=== PATIENT | male | born 1960 | race Caucasian/White ===

== ENCOUNTER → 2022-01-10 16:57 | Outpatient (CLI) | payer BC, SELFPAY ==
[2022-01-10 18:32] LABS: Free T3, Triiodothyronine Free 3.36 pg/mL (2.77-5.27); Free T4, Direct Thyroxine 1.13 ng/dL (0.78-2.19)
== END ==
PROVIDERS: PCP Psychiatry & Neurology Psychiatry; Referring Provider Psychiatry & Neurology Psychiatry; Visit Provider Psychiatry & Neurology Psychiatry
DX: E03.9 Hypothyroidism, unspecified (principal)
CPT/HCPCS: 36415; 84439; 84443; 84481

== ENCOUNTER → 2022-10-10 08:15 | Outpatient (CLI) | payer BC, SELFPAY ==
[2022-10-10 09:02] LABS: Add Manual Diff / Slide Review NO; Basophils Absolute Auto 100 /uL (0-100); Basophils Percent Auto 1.4 % (0-2); Eosinophils Absolute Auto 200 /uL (0-450); Eosinophils Percent Auto 4.8 % (2-4); Hematocrit 45.2 % (41-53); Hemoglobin 15.4 g/dL (13.5-17.5); Lymphocytes Absolute Auto 1300 /uL (1100-4500); Mean Corpuscular HGB Conc 34.2 % (30-36); Mean Corpuscular Hemoglobin 34.2 PG (26-34); Monocytes Absolute Auto 400 /uL (0-900); Monocytes Percent Auto 8.8 % (3-14); Neutrophils Absolute Auto 3100 /uL (1500-7000); Platelet Count 188 X10^3/uL (150-400); Red Blood Cell Count 4.52 X10^6/uL (4.5-5.9); Red Cell Distribution Width 12.9 % (11.6-14.8); White Blood Cell Count 5.1 X10^3/uL (4.5-11.0)
[2022-10-10 09:03] LABS: Alanine Aminotransferase 33 IU/L (<50); Albumin 4.4 g/dL (3.5-5.0); Albumin Globulin Ratio 1.7 (1.0-2.8); Alkaline Phosphatase 75 U/L (38-126); Aspartate Aminotransferase 27 IU/L (17-59); BUN Creatinine Ratio 18.4 (6-22); Bilirubin Total 0.3 mg/dL (0.2-1.3); Blood Urea Nitrogen 18 mg/dL (9-20); Carbon Dioxide 25 mmol/L (22-32); Chloride 107 mmol/L (98-107); Cholesterol 280 mg/dL (140-199); Estimated Glomerular Filt Rate > 60 mL/min (>60); Globulin 2.6 g/dL (1.7-4.1); Glucose 101 mg/dL (80-110); HDL Cholesterol 65 mg/dL (40-60); HEMOLYSIS < 15 (0-50); LDL Cholesterol Calculated 191 mg/dL (<100); Potassium 4.3 mmol/L (3.4-5.1); Sodium 139 mmol/L (137-145); Triglycerides 119 mg/dL (35-150)
[2022-10-10 09:27] LABS: Prostate Specific Antigen Scrn 4.62 ng/mL (0.1-4.0); TSH w/ Reflex to FT4 5.92 uIU/mL (0.47-4.68)
[2022-10-10 09:52] LABS: Free T4, Direct Thyroxine 1.14 ng/dL (0.78-2.19)
== END ==
PROVIDERS: PCP Family Medicine; Referring Provider Family Medicine; Visit Provider Family Medicine
DX: E03.9 Hypothyroidism, unspecified (principal); Z13.220 Encounter for screening for lipoid disorders; Z79.899 Other long term (current) drug therapy; Z12.5 Encounter for screening for malignant neoplasm of prostate
CPT/HCPCS: 36415; 80053; 80061; 84439; 84443; 85025; G0103

== ENCOUNTER 2022-10-29 22:50 | Emergency (ER) | payer BC, SELFPAY ==
[2022-10-29 22:57] VITALS: BP 139/89; PULSE 71; RESP 16; TEMP 36.2; O2SAT 97; BMI 23.6
--- NOTE | 2022-10-29 23:05 | DI.RAD.S_ITS ---
PROCEDURE: XR FINGER RT MIN 2V INDICATIONS: sharp tool injury TECHNIQUE: 3 views of the 5th digit acquired. COMPARISON: None. FINDINGS: Bones: No fractures or dislocations. No suspicious bony lesions. Soft tissues: No radiopaque foreign bodies. No suspicious soft tissue calcifications. IMPRESSION: 1. No fractures or radiopaque foreign bodies. Dictated by: Jose Alaniz M.D. on 10/30/2022 at 0:00 Approved by: Jose Alaniz M.D. on 10/30/2022 at 0:01
[2022-10-29] MEDS: TET,DIPH,PERTUSS(ACELL),VAC/PF 0.5 ML SYRINGE IM (23:29)
--- NOTE | 2022-10-30 00:16 | ED.SKABFB ---
HPI - Skin/Abscess/Foreign Bdy General Chief complaint: Skin/Abscess/Foreign Body Stated complaint: Rt pinky lac Time Seen by Provider: 10/29/22 23:18 Source: patient Mode of arrival: Ambulatory Related Data Home Medications Medication Instructions Recorded Confirmed Fisetin 40 mg PO BID 10/04/22 acetylcysteine 600 mg tablet (NAC) 1,000 mg PO BID 10/04/22 10/04/22 b9 PO 10/04/22 lamotrigine 25 mg tablet 25 mg PO DAILY 10/04/22 10/04/22 lions blair 1,000 mg PO DAILY 10/04/22 lithium carbonate 150 mg capsule 150 mg PO ONCE 10/04/22 10/04/22 lithium carbonate 300 mg capsule 300 mg PO BEDTIME 10/04/22 10/04/22 magnesium taurinate-glycinate 225 mg PO 10/04/22 omega-3 fatty acids 1,000 mg 1,000 mg PO DAILY 10/04/22 10/04/22 capsule s-adenosylmethionine 400 mg tablet 400 mg PO BID 10/04/22 10/04/22 valacyclovir 500 mg tablet 500 mg PO DAILY 10/04/22 10/04/22 vitamin B complex (B 1 tab PO DAILY 10/04/22 10/04/22 Complex-Vitamin B12 tablet) zinc 30 mg PO 10/04/22 Previous Rx's Medication Instructions Recorded levothyroxine 75 mcg tablet 75 mcg PO DAILY #90 tabs 10/10/22 Allergies Allergy/AdvReac Type Severity Reaction Status Date / Time No Known Drug Allergies Allergy Verified 10/29/22 22:57 Patient History Medical History Hypothyroid [place] use Social History Smoking Status: Never smoker Smoking Status: Never smoker alcohol intake frequency: a few times a week Substance Use Type: does not use Exam Initial Vital Signs Initial Vital Signs: Vital Signs Temperature 97.2 F L 10/29/22 22:57 Pulse Rate 71 10/29/22 22:57 Respiratory Rate 16 10/29/22 22:57 Blood Pressure 139/89 10/29/22 22:57 Pulse Oximetry 97 10/29/22 22:57 Oxygen Delivery Method 10/29/22 22:57 Course Orders Ordered: ED Orders 10/29/22 23:05 XR finger RT min 2V Stat Discontinued Medications Diphtheria/Tetanus/Acell Pertussis (Tet,Diph,Pertuss(Acell),Vac/Pf 0.5 Ml Syringe) 0.5 ml IM .ONCE ONE Stop: 10/29/22 23:07 Last Admin: 10/29/22 23:29 Dose: 0.5 ml Documented By: MARI Vital Signs Vital signs: Vital Signs - 8 hr 10/29/22 22:57 Temperature 97.2 F L Pulse Rate 71 Respiratory Rate 16 Blood Pressure 139/89 Pulse Oximetry 97 Oxygen Delivery Method Room Air Discharge Plan Departure Patient Disposition: Home Clinical Impression: Finger laceration Qualifiers: Encounter type: initial encounter Finger: little finger Damage to nail status: with damage Foreign body presence: without foreign body Laterality: right Qualified Code(s): S61.316A - Laceration without foreign body of right little finger with damage to nail, initial encounter Instructions: DI for Laceration Repair -- Finger, Tetanus, Diphtheria, Pertussis (Tdap) Vaccine Activity Restrictions/Additional Instructions: Thank you for coming in today You did cut off the very tip of your pinky however the bleeding is controlled. You did not get deep enough to involve the bone at all. You could off the end of your nail however the living growing part of your nail is at the base of your fingernail and that you did not damage. Use some antibiotic ointment and a Band-Aid on the tip of the finger until it is not bothering you any longer. The nail will continue to grow out nicely. Your tetanus status was updated today. Using 400 mg of ibuprofen (2 [id number] pills) and 1 Tylenol every 6 hours can be very helpful in controlling pain. If you find that you are getting worse or develop any new symptoms, please feel free to return to the emergency department for further evaluation. Prescriptions: No Action levothyroxine 75 mcg tablet 75 mcg PO DAILY Qty: 90 0RF valacyclovir 500 mg tablet 500 mg PO DAILY lithium carbonate 300 mg capsule 300 mg PO BEDTIME lithium carbonate 150 mg capsule 150 mg PO ONCE Rx Instructions: Take one tab PO with two 300mg Tabs at bedtime lamotrigine 25 mg tablet 25 mg PO DAILY vitamin B complex [B Complex-Vitamin B12] Tablet 1 tab PO DAILY b9 PO magnesium taurinate-glycinate 225 mg PO NAC 600 mg tablet 1,000 mg PO BID omega-3 fatty acids 1,000 mg capsule 1,000 mg PO DAILY s-adenosylmethionine 400 mg tablet 400 mg PO BID Rx Instructions: administer on an empty stomach zinc 30 mg PO Fisetin 40 mg PO BID lions blair 1,000 mg PO DAILY Referrals: Chavez Ni DO [Primary Care Provider] - Stand Alone Forms: Patient Portal/API
[2022-10-30] MEDS: BACITRACIN OINT 0.9 GM PCKT 1 APPLIC TOP (00:33)
[2022-10-30] MEDS: IBUPROFEN 400 MG TABLET PO (00:33)
[2022-10-30] MEDS: ACETAMINOPHEN 325 MG TABLET PO (00:33)
[2022-10-30 00:36] VITALS: BP 134/85; PULSE 72; RESP 16; O2SAT 99
== END 2022-10-30 00:37 | disposition home or self-care (01) ==
PROVIDERS: Emergency Provider Emergency Medicine; PCP Family Medicine
DX: S61.316A Laceration without foreign body of right little finger with damage to nail, initial encounter (principal); W26.0XXA Contact with knife, initial encounter; Z23 Encounter for immunization
CPT/HCPCS: 73140; 90471; 99283; 90715

== ENCOUNTER → 2022-11-06 12:27 | Outpatient (CLI) | payer BC, SELFPAY ==
[2022-11-07 07:37] LABS: Fecal Immunochemical Test Negative (Negative)
== END ==
PROVIDERS: PCP Family Medicine; Referring Provider Family Medicine; Visit Provider Family Medicine
DX: Z12.11 Encounter for screening for malignant neoplasm of colon (principal)
CPT/HCPCS: 82274

== ENCOUNTER → 2023-01-23 07:01 | Outpatient (CLI) | payer BC, SELFPAY ==
[2023-01-23 08:43] LABS: Cholesterol 231 mg/dL (140-199); HDL Cholesterol 49 mg/dL (40-60); LDL Cholesterol Calculated 165 mg/dL (<100); Triglycerides 85 mg/dL (35-150)
[2023-01-23 09:12] LABS: Prostate Specific Antigen Scrn 4.78 ng/mL (0.1-4.0)
[2023-01-23 09:24] LABS: TSH w/ Reflex to FT4 2.26 uIU/mL (0.47-4.68)
== END ==
PROVIDERS: PCP Family Medicine; Referring Provider Family Medicine; Visit Provider Family Medicine
DX: Z12.5 Encounter for screening for malignant neoplasm of prostate (principal); E03.2 Hypothyroidism due to medicaments and other exogenous substances; E78.2 Mixed hyperlipidemia
CPT/HCPCS: 36415; 80061; 84443; G0103

== ENCOUNTER 2023-04-23 06:07 | Emergency (ER) | payer BC, SELFPAY ==
[2023-04-23 06:10] VITALS: BP 154/82; PULSE 64; RESP 15; TEMP 36.4; O2SAT 98; BMI 24.3
--- NOTE | 2023-04-23 06:10 | DI.RAD.S_ITS ---
PROCEDURE: XR KNEE LT 3V INDICATIONS: pain after injury TECHNIQUE: 3 views of the knee were acquired. COMPARISON: None. FINDINGS: Bones: No fractures or dislocations. No suspicious bony lesions. Soft tissues: Small joint effusion. No suspicious soft tissue calcifications. IMPRESSION: No acute osseous abnormality. Small joint effusion. Dictated by: Florencio Jackson M.D. on 04/23/2023 at 8:25 Approved by: Florencio Jackson M.D. on 04/23/2023 at 8:26
--- NOTE | 2023-04-23 06:25 | ED_ITS ---
HPI - Extremity Problem General Chief complaint: Extremity Problem,Nontraumatic Stated complaint: left knee pain Time Seen by Provider: 04/23/23 06:10 Source: patient Mode of arrival: Ambulatory History of Present Illness HPI Narrative: Patient is a 62-year-old male who stated that he did go on a hike yesterday. It was several miles but that is not unusual for him. He does not remember any specific incident that would have caused him to hurt his left knee although he was woken up in the middle of the night with pain to his left knee. Also some swelling. It is causing quite a bit of discomfort with walking. No prior injuries. No fevers. He states that after walking and has improved slightly. Related Data Home Medications Medication Instructions Recorded Confirmed Fisetin 40 mg PO BID 10/04/22 02/09/23 acetylcysteine 600 mg tablet (NAC) 1,000 mg PO BID 10/04/22 02/09/23 b9 PO 10/04/22 02/09/23 lamotrigine 25 mg tablet 25 mg PO DAILY 10/04/22 02/09/23 lions blair 1,000 mg PO DAILY 10/04/22 02/09/23 magnesium taurinate-glycinate 225 mg PO 10/04/22 02/09/23 omega-3 fatty acids 1,000 mg 1,000 mg PO DAILY 10/04/22 02/09/23 capsule s-adenosylmethionine 400 mg tablet 400 mg PO BID 10/04/22 02/09/23 vitamin B complex (B 1 tab PO DAILY 10/04/22 02/09/23 Complex-Vitamin B12 tablet) zinc 30 mg PO 10/04/22 02/09/23 lithium carbonate 300 mg capsule 900 mg PO BEDTIME 02/09/23 02/09/23 pantethine 450 mg capsule cap PO 02/09/23 02/09/23 phytosterol 300 mg-pantethine 100 cap PO 02/09/23 02/09/23 mg capsule (CholestOff Complete) Previous Rx's Medication Instructions Recorded valacyclovir 500 mg tablet 500 mg PO DAILY #90 tabs 01/18/23 levothyroxine 100 mcg tablet 100 mcg PO DAILY #90 tabs 01/23/23 tramadol 50 mg tablet 50 mg PO Q8H PRN pain #10 tabs 04/23/23 Allergies Allergy/AdvReac Type Severity Reaction Status Date / Time No Known Drug Allergies Allergy Verified 02/09/23 12:03 Review of Systems Constitutional Constitutional: Reports system reviewed and no additional complaints, except as documented Musculoskeletal Musculoskeletal: Reports system reviewed and no additional complaints, except as documented Integumentary/Breasts Skin/Breast: Reports system reviewed and no additional complaints, except as documented Neurologic Neurologic: Reports system reviewed and no additional complaints, except as documented Patient History Medical History Acute right-sided thoracic back pain ADHD Anxiety (~2011) Depression (~2011) Elevated PSA, less than 10 ng/ml Excessive cerumen in both ear canals Foot pain (~2020) GERD (gastroesophageal reflux disease) (~2019) Herpes (~2005) Hyperlipidemia, mixed Hypothyroid (~2021) [place] use THEO on CPAP Thoracic region somatic dysfunction Surgical History (Updated 11/06/22 @ 20:18 by Yuni Lo) Anesthesia History of dental surgery Social History Smoking Status: Never smoker Smoking Status: Never smoker alcohol intake frequency: a few times a week Substance Use Type: does not use Exam Initial Vital Signs Initial Vital Signs: Vital Signs Temperature 97.6 F 04/23/23 06:10 Pulse Rate 64 04/23/23 06:10 Respiratory Rate 15 04/23/23 06:10 Blood Pressure 154/82 H 04/23/23 06:10 Pulse Oximetry 98 04/23/23 06:10 Oxygen Delivery Method Room Air 04/23/23 06:10 Const General: cooperative Skin General: no rashes or lesions noted Neuro Sensory Exam: no sensory deficits noted Extrem Other: Right knee is unremarkable. Left knee has no tenderness along the hamstring tendon. No tenderness of the patella tendon. Does have tenderness over the quadriceps tendon event no mediolateral joint line tenderness. Does have an effusion in the suprapatellar bursa. Course Orders Ordered: ED Orders 04/23/23 06:10 XR knee LT 3V Stat Vital Signs Vital signs: Vital Signs - 8 hr 04/23/23 06:10 Temperature 97.6 F Pulse Rate 64 Respiratory Rate 15 Blood Pressure 154/82 H Pulse Oximetry 98 Oxygen Delivery Method Room Air MDM - Extremity (Nontraumatic) Imaging Data Extremity x-ray #1: My Impression: No fractures or dislocations. MDM Narrative Medical decision making narrative: His presentation today is consistent with a bursitis. There are no fractures or dislocations noted on the x-ray. There is no redness. For now will can treat conservatively. He was given return precautions follow-up instructions. He expressed understanding and agreement. Discharge Plan Departure Patient Disposition: Home Clinical Impression: Bursitis Instructions: Bursitis, How To Perform RICE (Rest, Ice, Compress, Elevate) Activity Restrictions/Additional Instructions: I do recommend that you try to limit the amount of walking you do over the next day or so. This will help the swelling go down. Also use ice. You can take Tylenol/ibuprofen for discomfort. Return to the emergency department for new symptoms. Prescriptions: New tramadol 50 mg tablet 50 mg PO Q8H PRN (Reason: pain) Qty: 10 0RF No Action valacyclovir 500 mg tablet 500 mg PO DAILY Qty: 90 3RF levothyroxine 100 mcg tablet 100 mcg PO DAILY Qty: 90 3RF lamotrigine 25 mg tablet 25 mg PO DAILY vitamin B complex [B Complex-Vitamin B12] Tablet 1 tab PO DAILY b9 PO magnesium taurinate-glycinate 225 mg PO NAC 600 mg tablet 1,000 mg PO BID omega-3 fatty acids 1,000 mg capsule 1,000 mg PO DAILY s-adenosylmethionine 400 mg tablet 400 mg PO BID Rx Instructions: administer on an empty stomach zinc 30 mg PO Fisetin 40 mg PO BID lions blair 1,000 mg PO DAILY lithium carbonate 300 mg capsule 900 mg PO BEDTIME pantethine 450 mg capsule PO CholestOff Complete 300-100 mg capsule PO Referrals: Chavez Ni DO [Primary Care Provider] - Stand Alone Forms: Patient Portal/API
== END 2023-04-23 06:52 | disposition home or self-care (01) ==
PROVIDERS: Emergency Provider Emergency Medicine; PCP Family Medicine
DX: M71.9 Bursopathy, unspecified (principal)
CPT/HCPCS: 73562; 99283

== ENCOUNTER → 2023-07-07 08:33 | Outpatient (CLI) | payer BC, SELFPAY ==
[2023-07-07 09:23] LABS: Lithium 0.8 mmol/L (0.6-1.2)
[2023-07-07 09:44] LABS: Free T3, Triiodothyronine Free 4.04 pg/mL (2.77-5.27); Free T4, Direct Thyroxine 1.54 ng/dL (0.78-2.19)
[2023-07-07 09:57] LABS: Thyroid Stimulating Hormone 0.185 uIU/mL (0.47-4.68)
== END ==
PROVIDERS: PCP Family Medicine; Referring Provider Psychiatry & Neurology Psychiatry; Visit Provider Psychiatry & Neurology Psychiatry
DX: F33.1 Major depressive disorder, recurrent, moderate (principal)
CPT/HCPCS: 36415; 80178; 84439; 84443; 84481

== ENCOUNTER → 2023-09-20 15:26 | Outpatient (CLI) | payer BC, SELFPAY ==
[2023-09-20 16:46] LABS: Cholesterol 261 mg/dL (140-199); HDL Cholesterol 52 mg/dL (40-60); LDL Cholesterol Calculated 179 mg/dL (<100); Triglycerides 151 mg/dL (35-150)
[2023-09-20 17:20] LABS: TSH w/ Reflex to FT4 0.86 uIU/mL (0.47-4.68)
== END ==
PROVIDERS: PCP Family Medicine; Referring Provider Family Medicine; Visit Provider Family Medicine
DX: E78.2 Mixed hyperlipidemia (principal); E03.9 Hypothyroidism, unspecified
CPT/HCPCS: 36415; 80061; 84443

== ENCOUNTER → 2023-10-30 08:01 | Outpatient (CLI) | payer BC, SELFPAY ==
--- NOTE | 2023-10-30 08:02 | DI.RAD.S_ITS ---
PROCEDURE: XR HIP W PEL IF DONE LT 2V INDICATIONS: hip pain LEFT TECHNIQUE: AP pelvis with lateral view(s) of the left hip(s). COMPARISON: None. FINDINGS: Bones: No fractures or dislocations. Pelvic ring appears intact. No suspicious bony lesions. Minimal to mild bilateral degenerative hip joint space narrowing. No erosions. Soft tissues: The visualized bowel gas pattern is normal. No suspicious soft tissue calcifications. 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 Dictated by: Ashlee Nunez M.D. on 10/30/2023 at 10:12 Approved by: Ashlee Nunez M.D. on 10/30/2023 at 10:12
== END ==
PROVIDERS: PCP Family Medicine; Referring Provider Family Medicine; Visit Provider Family Medicine
DX: M25.552 Pain in left hip (principal); G89.29 Other chronic pain
CPT/HCPCS: 73502

== ENCOUNTER → 2025-03-02 06:54 | Outpatient (CLI) | payer BC, SELFPAY ==
[2025-03-02 07:52] LABS: Add Manual Diff / Slide Review NO; Basophils Absolute Auto 100 /uL (0-100); Basophils Percent Auto 1.3 % (0-2); Eosinophils Absolute Auto 300 /uL (0-450); Eosinophils Percent Auto 5.4 % (2-4); Hematocrit 45.1 % (41-53); Hemoglobin 15.7 g/dL (13.5-17.5); Lymphocytes Absolute Auto 1200 /uL (1100-4500); Lymphocytes Percent Auto 19.3 % (25-40); Mean Corpuscular HGB Conc 34.8 % (30-36); Mean Corpuscular Hemoglobin 34.8 PG (26-34); Monocytes Absolute Auto 500 /uL (0-900); Monocytes Percent Auto 8.1 % (3-14); Neutrophils Absolute Auto 4000 /uL (1500-7000); Neutrophils Percent Auto 65.9 % (50-75); Platelet Count 184 X10^3/uL (150-400); Red Blood Cell Count 4.51 X10^6/uL (4.5-5.9); Red Cell Distribution Width 12.9 % (11.6-14.8)
[2025-03-02 08:23] LABS: Lithium 0.9 mmol/L (0.6-1.2)
[2025-03-02 08:25] LABS: Alanine Aminotransferase 24 IU/L (<50); Albumin 4.6 g/dL (3.5-5.0); Albumin Globulin Ratio 2.2 (1.0-2.8); Alkaline Phosphatase 72 U/L (38-126); Aspartate Aminotransferase 27 IU/L (17-59); BUN Creatinine Ratio 16.7 (6-22); Bilirubin Total 0.8 mg/dL (0.2-1.3); Blood Urea Nitrogen 19 mg/dL (9-20); Calcium 9.5 mg/dL (8.4-10.2); Carbon Dioxide 24 mmol/L (22-32); Chloride 108 mmol/L (98-107); Cholesterol 253 mg/dL (140-199); Estimated Glomerular Filt Rate > 60 mL/min (>60); Globulin 2.1 g/dL (1.7-4.1); Glucose 102 mg/dL (70-99); HDL Cholesterol 63 mg/dL (40-60); HEMOLYSIS < 15 (0-50); LDL Cholesterol Calculated 163 mg/dL (<100); Potassium 4.2 mmol/L (3.4-5.1); Sodium 139 mmol/L (137-145); Total Protein 6.7 g/dL (6.3-8.2); Triglycerides 135 mg/dL (35-150)
== END ==
PROVIDERS: PCP Family Medicine; Referring Provider Family Medicine; Visit Provider Family Medicine
DX: E03.9 Hypothyroidism, unspecified (principal); Z79.899 Other long term (current) drug therapy; E78.2 Mixed hyperlipidemia; Z12.5 Encounter for screening for malignant neoplasm of prostate
CPT/HCPCS: 36415; 80053; 80061; 80178; 84443; 85025; G0103

== ENCOUNTER → 2025-07-18 07:21 | Outpatient (CLI) | payer BC, SELFPAY ==
--- NOTE | 2025-07-18 07:23 | DI.MRI.S_ITS ---
PROCEDURE: MR SHOULDER RT WO CON INDICATIONS: Right shoulder pain and weakness. r/o RTC TECHNIQUE: Noncontrast oblique coronal T2 fast spin echo with fat saturation, oblique sagittal T1 spin echo and T2 fast spin echo with fat saturation, axial T1 spin echo and T2 fast spin echo with fat saturation through the shoulder. COMPARISON: None. FINDINGS: Quality: Adequate. Tendons: Rotator cuff tendons: Approximately 50 percent thickness articular sided noninsertional tearing of the supraspinatus infraspinatus tendons. Subscapularis tendinopathy. Teres minor tendon is unremarkable. Long head of biceps tendon: Intact. No dislocation. Mild tendon sheath fluid. Muscles: Disproportion of atrophy of the teres minor muscle which may be associated with axillary neuropathy. No quadrilateral space mass identified. Acromioclavicular joint: Mild degenerative changes. Glenohumeral joint: Labrum: Diffuse degeneration. Cartilage: No focal defect. Small glenoid rim marginal osteophytes. Fluid: No effusion. Capsule: No pericapsular inflammation or scarring. Alignment: No dislocation. Bursa: Subacromial/subdeltoid bursa: Trace fluid Subcoracoid bursa: Nondistended. Bones: No fracture. IMPRESSION: Intermediate-grade partial-thickness articular sided supraspinatus/infraspinatus tendon tear. Acromioclavicular and glenohumeral osteoarthritis, early. Subacromial/subdeltoid bursitis. Findings associated with axillary neuropathy. Dictated by: Chito Good M.D. on 07/20/2025 at 16:13 Approved by: Chito Good M.D. on 07/20/2025 at 16:17
== END ==
LOC: MRI 07:22
PROVIDERS: PCP Family Medicine; Referring Provider Family Medicine; Visit Provider Physician Assistant Surgical
DX: M75.101 Unspecified rotator cuff tear or rupture of right shoulder, not specified as traumatic (principal); M19.011 Primary osteoarthritis, right shoulder; M75.51 Bursitis of right shoulder
CPT/HCPCS: 73221

== ENCOUNTER 2025-08-31 17:00 | Outpatient (RCR) | payer BC, SELFPAY ==
--- NOTE | 2025-06-17 17:01 | PT.OPPOC ---
Physical, Occupational & Speech Therapy At [facility] Current Diagnoses Other chronic pain (06/17/25) Pain in right arm (06/17/25) Visit Care Team Role Provider Type Chavez iN DO Attending Provider Physician Primary Care Provider Referring Provider Specialty: Family Practice Address: [address] [place] [address], [facility] Email: Plan Of Care PT OP: Cervical/Upper Extremity Start: 06/17/25 16:11 Freq: Status: Active Protocol: Document 06/17/25 11:30 DCW (Rec: 06/17/25 16:20 DCW [id number]) Out-Patient Physical Therapy Visit Information Visit Information Visit Type Initial Evaluation Visit Start Time 11:30 Visit Stop Time 12:15 Visit Number 1 Number of ELECTRONIC SPECIALIST Visits 0 Progress Note Due 07/17/25 Evaluation Information Evaluation Date 06/17/25 Current Condition History of Current Condition Onset Date Seven month history Current Complaints Right shoulder pain, stiffness History of Current Pt is a 64 year old male presenting with a seven month Condition history of right shoulder pain. Pt reports he just suddenly had this feeling like he pulled something in his shoulder, assumed it would go away. Does not remember actual injury, but does note there was a weekend with a lot of wood chopping, which may have been the cause. Shoulder pain worse with overhead movements, reaching behind his back, or sleeping on his right shoulder. Pain seems to come and go, It feels good enough that I forget about it, then I reach for something, and then the pain starts back up. Is able to do hiking and kayaking without increase in symptoms. Was referred to ortho, notes they did an x-ray, felt he likely injured his rotator cuff, and recommended PT. OP-PT Subjective Patient Comments Patient Comments I'd really just like it fixed. Patient Questionnaires Quick Dash- Upper Extremity Quick Dash UE Score 20.45% Shoulder Goniometric Range of Motion Shoulder Measured in Degrees Right Active Shoulder ROM WFL No Testing Position Sitting Flexion 118 Abduction 109 External Rotation at 75 0 degrees Abduction Internal Rotation L1 Behind Back (text) Left Active Shoulder ROM WFL Yes Testing Position Sitting Flexion 180 Abduction 180 External Rotation at 75 0 degrees Abduction Internal Rotation T4 Behind Back (text) Special Tests Shoulder Special Tests Passive ER Rotator Cuff Test Results Positive R Lift-Off Rotator Cuff Test Results Positive R Meng José Miguel Impingement Test Results Positive R Empty Can Test Results Positive R Belly Press Test Results Negative Shoulder Strength Shoulder Manual Muscle Testing Right Flexion 3+ Fair+ Extension 5 Normal Abduction (C5) 4- Good- External Rotation 5 Normal Internal Rotation 5 Normal Left Flexion 5 Normal Extension 5 Normal Abduction (C5) 5 Normal External Rotation 5 Normal Internal Rotation 5 Normal Therapeutic Exercises Standing Exercises Flexion Standing Exercise Shoulder Flexion Name Side right Resistance Lv 2 Comments Pain-free ROM ER/IR Standing Exercise Shoulder ER/IR Name Side bilateral Resistance Lv 2 Physical Therapy Assessment Rehab Potential Rehabilitation Good Potential Evaluation Complexity Number of Personal 1-2 Factors/ Comorbidities Number of Body 4 or More Systems Impaired Clinical Stable Presentation at Evaluation Impairments Impairments Activity Tolerance,Functional Activities,Functional Mobility,Pain,ROM,Soft Tissue Mobility,Strength Goals Two Impairment Limitations in R shoulder ROM, flexion 118?, abduction 109? Fresco Artist Goal (LTG) Pt to improve right flexion and abduction to >135? in order to improve performance in overhead tasks LTG Duration 09/15/25 One Impairment Pt does not have an appropriate home exercise program Intermediate Goal (LTG) Pt to demonstrate ability to perform four home exercises without cueing in order to demonstrate independence with HEP LTG Duration 09/15/25 Assessment Summary Assessment Pt presents with signs and symptoms consistent with referring diagnosis, likely right rotator cuff involvement limiting mobility and strength in right shoulder. DDx difficult, due to pt demonstrating positive special tests which may indicate multiple areas of involvement. With positive Meng-José Miguel and Empty Can tests and location of pain, most likely area of concern is supraspinatus, although could also include subscap, infraspinatus, or labrum. Pt will likely benefit from skilled therapy focusing on mobility, ROM, strengthening, and pain control. If pt does not respond to PT as expected, may benefit from further imaging in the future. Physical Therapy Plan Frequency and Duration Frequency of 2x/Week Treatment Plan of Care Start 06/17/25 Date Plan of Care End 09/15/25 Date Therapeutic Interventions Therapeutic Home Exercise Program,Joint Mobilizations,Manual Interventions Therapy,Neuromuscular Re-education,Patient/Caregiver Education,Self-Care/Home Management,Soft Tissue Mobilization,Therapeutic Activities,Therapeutic Exercises Modalities Cold Pack/Ice Massage,Electric Stimulation,Hot Packs, Ultrasound Next Visit Focus/Plan Next Note Type Treatment Note Next Visit Plan Shoulder ROM, strengthening, STM, joint mobilization Plan of Care Dates Plan of Care Start Date 06/17/25 Plan of Care End Date 09/15/25 Electronically Signed by: Juan Hernandez, PT 06/18/25 [id number] If you are in agreement with this Plan of Care, please return a signed and dated copy. I have reviewed this Plan of Care and certify that the skilled therapy services above are required to meet the patient?s needs. Physician Signature Date Printed Name and Credentials Clinical Instructor Signature Printed Name and Credentials
--- NOTE | 2025-06-17 17:01 | PT.OPPOC ---
Physical, Occupational & Speech Therapy At [facility] Current Diagnoses Other chronic pain (06/17/25) Pain in right arm (06/17/25) Visit Care Team Role Provider Type Chavez Ni DO Attending Provider Physician Primary Care Provider Referring Provider Specialty: Family Practice Address: [address] [place] [address], [facility] Email: Plan Of Care PT OP: Cervical/Upper Extremity Start: 06/17/25 16:11 Freq: Status: Active Protocol: Document 06/17/25 11:30 DCW (Rec: 06/17/25 16:20 DCW [id number]) Out-Patient Physical Therapy Visit Information Visit Information Visit Type Initial Evaluation Visit Start Time 11:30 Visit Stop Time 12:15 Visit Number 1 Number of BROWNING PROCESSOR Visits 0 Progress Note Due 07/17/25 Evaluation Information Evaluation Date 06/17/25 Current Condition History of Current Condition Onset Date Seven month history Current Complaints Right shoulder pain, stiffness History of Current Pt is a 64 year old male presenting with a seven month Condition history of right shoulder pain. Pt reports he just suddenly had this feeling like he pulled something in his shoulder, assumed it would go away. Does not remember actual injury, but does note there was a weekend with a lot of wood chopping, which may have been the cause. Shoulder pain worse with overhead movements, reaching behind his back, or sleeping on his right shoulder. Pain seems to come and go, It feels good enough that I forget about it, then I reach for something, and then the pain starts back up. Is able to do hiking and kayaking without increase in symptoms. Was referred to ortho, notes they did an x-ray, felt he likely injured his rotator cuff, and recommended PT. OP-PT Subjective Patient Comments Patient Comments I'd really just like it fixed. Patient Questionnaires Quick Dash- Upper Extremity Quick Dash UE Score 20.45% Shoulder Goniometric Range of Motion Shoulder Measured in Degrees Right Active Shoulder ROM WFL No Testing Position Sitting Flexion 118 Abduction 109 External Rotation at 75 0 degrees Abduction Internal Rotation L1 Behind Back (text) Left Active Shoulder ROM WFL Yes Testing Position Sitting Flexion 180 Abduction 180 External Rotation at 75 0 degrees Abduction Internal Rotation T4 Behind Back (text) Special Tests Shoulder Special Tests Passive ER Rotator Cuff Test Results Positive R Lift-Off Rotator Cuff Test Results Positive R Meng José Miguel Impingement Test Results Positive R Empty Can Test Results Positive R Belly Press Test Results Negative Shoulder Strength Shoulder Manual Muscle Testing Right Flexion 3+ Fair+ Extension 5 Normal Abduction (C5) 4- Good- External Rotation 5 Normal Internal Rotation 5 Normal Left Flexion 5 Normal Extension 5 Normal Abduction (C5) 5 Normal External Rotation 5 Normal Internal Rotation 5 Normal Therapeutic Exercises Standing Exercises Flexion Standing Exercise Shoulder Flexion Name Side right Resistance Lv 2 Comments Pain-free ROM ER/IR Standing Exercise Shoulder ER/IR Name Side bilateral Resistance Lv 2 Physical Therapy Assessment Rehab Potential Rehabilitation Good Potential Evaluation Complexity Number of Personal 1-2 Factors/ Comorbidities Number of Body 4 or More Systems Impaired Clinical Stable Presentation at Evaluation Impairments Impairments Activity Tolerance,Functional Activities,Functional Mobility,Pain,ROM,Soft Tissue Mobility,Strength Goals Two Impairment Limitations in R shoulder ROM, flexion 118?, abduction 109? Construction Helper Goal (LTG) Pt to improve right flexion and abduction to >135? in order to improve performance in overhead tasks LTG Duration 09/15/25 One Impairment Pt does not have an appropriate home exercise program Snf Goal (LTG) Pt to demonstrate ability to perform four home exercises without cueing in order to demonstrate independence with HEP LTG Duration 09/15/25 Assessment Summary Assessment Pt presents with signs and symptoms consistent with referring diagnosis, likely right rotator cuff involvement limiting mobility and strength in right shoulder. DDx difficult, due to pt demonstrating positive special tests which may indicate multiple areas of involvement. With positive Meng-José Miguel and Empty Can tests and location of pain, most likely area of concern is supraspinatus, although could also include subscap, infraspinatus, or labrum. Pt will likely benefit from skilled therapy focusing on mobility, ROM, strengthening, and pain control. If pt does not respond to PT as expected, may benefit from further imaging in the future. Physical Therapy Plan Frequency and Duration Frequency of 2x/Week Treatment Plan of Care Start 06/17/25 Date Plan of Care End 09/15/25 Date Therapeutic Interventions Therapeutic Home Exercise Program,Joint Mobilizations,Manual Interventions Therapy,Neuromuscular Re-education,Patient/Caregiver Education,Self-Care/Home Management,Soft Tissue Mobilization,Therapeutic Activities,Therapeutic Exercises Modalities Cold Pack/Ice Massage,Electric Stimulation,Hot Packs, Ultrasound Next Visit Focus/Plan Next Note Type Treatment Note Next Visit Plan Shoulder ROM, strengthening, STM, joint mobilization Plan of Care Dates Plan of Care Start Date 06/17/25 Plan of Care End Date 09/15/25 Electronically Signed by: Juan Hernandez, PT 06/18/25 1321 If you are in agreement with this Plan of Care, please return a signed and dated copy. I have reviewed this Plan of Care and certify that the skilled therapy services above are required to meet the patient?s needs. Physician Signature Date Printed Name and Credentials Clinical Instructor Signature Printed Name and Credentials
--- NOTE | 2025-06-23 12:58 | PT.OTN ---
Current Diagnoses Other chronic pain (06/23/25) Pain in right arm (06/23/25) Physical Therapy Treatment Note PT OP: Cervical/Upper Extremity Start: 06/17/25 16:11 Freq: Status: Active Protocol: Document 06/23/25 12:15 DCW (Rec: 06/23/25 12:58 DCW [id number]) Out-Patient Physical Therapy Visit Information Visit Information Visit Type Treatment Note Visit Start Time 12:15 Visit Stop Time 13:00 Visit Number 2 Number of ARCHITECTURE MANAGER Visits 0 Progress Note Due 07/17/25 Evaluation Information Evaluation Date 06/17/25 OP-PT Subjective Patient Comments Patient Comments It's actually feeling better, I'm cautiously optimistic. I woke up this morning pretty sore, but it' s feeling okay by now. Cardio Equipment Upper Body Ergometer (UBE) Duration (Minutes) 4 RPM 60 Seat Position 12 Height 2.5 Other 2' fwd, 2' bkwd Therapeutic Exercises Prone Exercises Extension Prone Exercise Name Prone shoulder extension Side right Resistance 2# Flexion Prone Exercise Name Prone shoulder flexion Side right Resistance 2# Standing Exercises Abduction Standing Exercise Shoulder Abduction Name Side bilateral Resistance 3# Extension Standing Exercise Shoulder Extension Name Side bilateral Resistance Blue Row Standing Exercise Rows Name Side bilateral Resistance Blue Flexion Standing Exercise Shoulder Flexion Name Side bilateral Resistance 3# Comments Pain-free ROM Other Exercises Wall clock Other Exercise Name Wall Clock Side bilateral Resistance Lv 1 loop UE side-stepping Other Exercise Name UE resisted side-stepping Side bilateral Resistance Lv 1 loop Manual Therapy Treatment Consent Patient gave verbal Yes consent for manual treatment Soft Tissue Mobilization Shoulder Body Location R Upper Trap, Supraspinatus, Infraspinatus Joint Mobilizations GH Joint R GH Direction Inferior Grade III Physical Therapy Assessment Impairments Impairments Activity Tolerance,Functional Activities,Functional Mobility,Pain,ROM,Soft Tissue Mobility,Strength Goals Two Impairment Limitations in R shoulder ROM, flexion 118?, abduction 109? Draw Press Operator Goal (LTG) Pt to improve right flexion and abduction to >135? in order to improve performance in overhead tasks LTG Duration 09/15/25 One Impairment Pt does not have an appropriate home exercise program Senior Living Goal (LTG) Pt to demonstrate ability to perform four home exercises without cueing in order to demonstrate independence with HEP LTG Duration 09/15/25 Assessment Summary Assessment Pt demonstrating improvement with pain-free AROM today, tolerated most activities well, however did experience pain with standing shoulder abduction, repeated VCs to limit motion to pain-free ROM. Continue focus on strength and mobility. Physical Therapy Plan Frequency and Duration Frequency of 2x/Week Treatment Plan of Care Start 06/17/25 Date Plan of Care End 09/15/25 Date Therapeutic Interventions Therapeutic Home Exercise Program,Joint Mobilizations,Manual Interventions Therapy,Neuromuscular Re-education,Patient/Caregiver Education,Self-Care/Home Management,Soft Tissue Mobilization,Therapeutic Activities,Therapeutic Exercises Modalities Cold Pack/Ice Massage,Electric Stimulation,Hot Packs, Ultrasound Next Visit Focus/Plan Next Note Type Treatment Note Next Visit Plan Shoulder ROM, strengthening, STM, joint mobilization
--- NOTE | 2025-07-08 17:50 | PT.OTN ---
Current Diagnoses Other chronic pain (07/08/25) Pain in right arm (07/08/25) Physical Therapy Treatment Note PT OP: Cervical/Upper Extremity Start: 06/17/25 16:11 Freq: Status: Active Protocol: Document 07/08/25 17:00 DCW (Rec: 07/08/25 17:50 DCW [id number]) Out-Patient Physical Therapy Visit Information Visit Information Visit Type Treatment Note Visit Start Time 17:00 Visit Stop Time 17:45 Visit Number 3 Number of SLACKLINE OPERATOR Visits 0 Progress Note Due 07/17/25 Evaluation Information Evaluation Date 06/17/25 OP-PT Subjective Patient Comments Patient Comments Still really hurts at night. Daytime not so much. Notes he had an ortho appointment this morning, and an MRI was ordered. Was able to be out for 2.5 hours kayaking over the weekend, no increased pain. Cardio Equipment Upper Body Ergometer (UBE) Duration (Minutes) 4 RPM 60 Seat Position 12 Height 2.5 Other 2' fwd, 2' bkwd Therapeutic Exercises Supine Exercises Horizontal Adduction Supine Exercise Name Shoulder HAdd Side right Serratus Punch Supine Exercise Name Serratus Punch Side bilateral Sitting Exercises ER/IR Sitting Exercise ER/IR in 90/90 Name Side right Resistance Red - 3.3# ball Overhead Press Sitting Exercise Overhead Press /c wand Name Side bilateral Resistance 5# Standing Exercises PNF Standing Exercise D2 extension UE PNF Name Side right Resistance Blue Abduction Standing Exercise Shoulder Abduction Name Side bilateral Resistance 3# Flexion Standing Exercise Shoulder Flexion Name Side bilateral Resistance 3# Comments Pain-free ROM Manual Therapy Treatment Consent Patient gave verbal Yes consent for manual treatment Soft Tissue Mobilization Shoulder Body Location R Upper Trap, Supraspinatus, Infraspinatus Mobilization Type Sustained Pressure,Trigger Point Release Intensity/Depth Moderate Body Position Supine Joint Mobilizations GH Joint R GH Direction Inferior Grade III Body Position Supine Physical Therapy Assessment Impairments Impairments Activity Tolerance,Functional Activities,Functional Mobility,Pain,ROM,Soft Tissue Mobility,Strength Goals Two Impairment Limitations in R shoulder ROM, flexion 118?, abduction 109? Mcc Goal (LTG) Pt to improve right flexion and abduction to >135? in order to improve performance in overhead tasks LTG Duration 09/15/25 One Impairment Pt does not have an appropriate home exercise program Mcc Goal (LTG) Pt to demonstrate ability to perform four home exercises without cueing in order to demonstrate independence with HEP LTG Duration 09/15/25 Assessment Summary Assessment Pt doing better with pain-free mobility, able to get to nearly full flexion and abduction without pain, even when lifting weight. Does note main pain at this point is in the mornings, typically after sleeping on his right side. Continue focus on strengthening and functional mobility. Physical Therapy Plan Frequency and Duration Frequency of 2x/Week Treatment Plan of Care Start 06/17/25 Date Plan of Care End 09/15/25 Date Therapeutic Interventions Therapeutic Home Exercise Program,Joint Mobilizations,Manual Interventions Therapy,Neuromuscular Re-education,Patient/Caregiver Education,Self-Care/Home Management,Soft Tissue Mobilization,Therapeutic Activities,Therapeutic Exercises Modalities Cold Pack/Ice Massage,Electric Stimulation,Hot Packs, Ultrasound Next Visit Focus/Plan Next Note Type Treatment Note Next Visit Plan Shoulder ROM, strengthening, STM, joint mobilization
--- NOTE | 2025-07-15 17:34 | PT.OTN ---
Current Diagnoses Other chronic pain (07/15/25) Pain in right arm (07/15/25) Physical Therapy Treatment Note PT OP: Cervical/Upper Extremity Start: 06/17/25 16:11 Freq: Status: Active Protocol: Document 07/15/25 13:08 NBM (Rec: 07/15/25 13:53 NBM Laptop) Out-Patient Physical Therapy Visit Information Visit Information Visit Type Treatment Note Visit Start Time 13:06 Visit Stop Time 13:52 Visit Number 4 Number of LINING CLEANER Visits 1 Progress Note Due 07/17/25 Evaluation Information Evaluation Date 06/17/25 OP-PT Subjective Patient Comments Patient Comments Shelton reports no pain currently but it hurts when waking up. Yesterday he took two pain meds when he woke up and that helped. The motions that used to trigger the pain have become fewer. Taking off coat hurts R shoulder while pulling arm back. Cardio Equipment Upper Body Ergometer (UBE) Duration (Minutes) 5 RPM 60 Seat Position 12 Height 2.5 Other 3' fwd, 3' bkwd Therapeutic Exercises Supine Exercises chin tuck Reps/Minutes 10x Comments initial cues Standing Exercises stretch Standing Exercise 1. Pt's overhead stretch 2. Doorway/Corner unilateral Name pec stretch Side bilateral Reps/Minutes trialed low, 90/90, and high angles for painfree range. Comments R sg> B sg. Emphasis on painfree range and breathwork . Therapeutic Activity Therapeutic Activity sleeping ergonomics Name supine, R sidelying on hi-lo table - HO given. Reps/Minutes 8' Comments Pt demos supine with head supported into forward head posture position, and R sidelying w/ R arm flexion to 90 deg resting on posterior aspect of shoulder w/ head resting on shoulder. -Edu for supine decreasing pillow supports to improve cervical spinal alignment. -S/l edu for scapular setting with emphasis on retraction and depression to lie on lateral aspect of shoulder and for improved spinal alignment with head position and R arm 90 deg flex w/ elbow at 90 deg. Pt reports R shoulder pain free in R sidelying w/ cues and education x5', some R hip discomfort which may be due to firmness of clinic mat table. Manual Therapy Treatment Consent Patient gave verbal Yes consent for manual treatment Soft Tissue Mobilization Shoulder Body Location R Upper Trap, Supraspinatus, Infraspinatus, pec, Biceps belly and insertion Mobilization Type Sustained Pressure,Trigger Point Release Intensity/Depth Moderate Body Position Supine Comments Pt verbally i/s in self-STM w/ hand or tennis ball to pec and Biceps insertions. Joint Mobilizations GH Joint R GH Direction Inferior, post Grade II Body Position Supine Physical Therapy Assessment Goals Two Impairment Limitations in R shoulder ROM, flexion 118?, abduction 109? Group Home Goal (LTG) Pt to improve right flexion and abduction to >135? in order to improve performance in overhead tasks LTG Duration 09/15/25 One Impairment Pt does not have an appropriate home exercise program Mobile Sales Assistant Goal (LTG) Pt to demonstrate ability to perform four home exercises without cueing in order to demonstrate independence with HEP LTG Duration 09/15/25 Assessment Summary Assessment Treatment focus on stretching, manual therapy, therapeutic activity and postural education. Tex's painfree R shoulder flexion range improves by end of session as with overhead stretch which initially provoked R shoulder pain but which is painfree end of session following manual therapy and pectoral stretching. With cues and education emphasizing scapular and head positioning he is able to tolerate R sidelying 5 minutes without shoulder pain - HO given. He is encouraged to perform pec stretch daily and verbally instructed in self-STM with hand or tennis ball to pec and biceps insertion. Physical Therapy Plan Frequency and Duration Frequency of 2x/Week Treatment Plan of Care Start 06/17/25 Date Plan of Care End 09/15/25 Date Next Visit Focus/Plan Next Note Type Treatment Note Next Visit Plan Shoulder ROM, strengthening, STM, joint mobilization
--- NOTE | 2025-07-22 17:52 | PT.OTN ---
Current Diagnoses Other chronic pain (07/22/25) Pain in right arm (07/22/25) Physical Therapy Treatment Note PT OP: Cervical/Upper Extremity Start: 06/17/25 16:11 Freq: Status: Active Protocol: Document 07/22/25 16:53 AB (Rec: 07/22/25 17:52 AB [id number]) Out-Patient Physical Therapy Visit Information Visit Information Visit Type Treatment Note Visit Start Time 17:03 Visit Stop Time 17:48 Visit Number 5 Number of ELECTRIC STOP INSTALLER Visits 2 Progress Note Due 08/21/25 OP-PT Subjective Patient Comments Patient Comments Patient reports the shoulder is the same. Patient reports he is doing the exercises more. Patient reports he saw the MRI report on the portal on Sunday. Patient reports he has to call and make an appointment with MD . Shoulder Goniometric Range of Motion Shoulder Right Active Shoulder ROM WFL No Testing Position Sitting Flexion 144 Abduction 111 Therapeutic Exercises Supine Exercises pec stretch on 1/2 foam roller Reps/Minutes 3 min1/2 roll 1 min full roll HEP Comments verbal and tactile cues Sidelying Exercises sidelying shoulder abnd Sidelying Exercise HEP Name Side right Reps/Minutes X 10 Comments verbal cues Standing Exercises Abduction Standing Exercise Shoulder Abduction Name Side bilateral Resistance level 2 band Reps/Minutes X 15 Comments good form, added back to wall for this ex Flexion Standing Exercise Shoulder Flexion Name Side bilateral Resistance level 2 band Reps/Minutes X 15 Comments Monitored for pain ER/IR Standing Exercise Shoulder ER/IR Name Side bilateral Resistance Lv 2 Reps/Minutes X 15 Comments requires verbal cues for IR initiates horizonal adduction Manual Therapy Treatment Consent Patient gave verbal Yes consent for manual treatment Soft Tissue Mobilization Shoulder Body Location UT/levator scap post cuff lat, pec alec scap muscles Mobilization Type Cross-Friction,Rolling,Sustained Pressure Intensity/Depth Moderate Body Position Sitting Comments sidelying, hooklying pressure to deep UT/levator scap Joint Mobilizations R scap Direction into dep and add Grade IV Body Position Sidelying Reps/Duration X 10 each direction GH Joint R GH Direction Inferior, post Grade III Body Position Supine Physical Therapy Assessment Goals Two Impairment Limitations in R shoulder ROM, flexion 118?, abduction 109? Automatic Vulcanizing Operator Goal (LTG) Pt to improve right flexion and abduction to >135? in order to improve performance in overhead tasks 07/22/2025 Goal met for flexion, but not abduction ( moves into scaption pattern ) LTG Duration 09/15/25 One Impairment Pt does not have an appropriate home exercise program Automatic Vulcanizing Operator Goal (LTG) Pt to demonstrate ability to perform four home exercises without cueing in order to demonstrate independence with HEP 07/22/2025 Patient required VC for shoulder IR initiates horizonal add. LTG Duration 09/15/25 Assessment Summary Assessment Shelton met goal for flexion, but not abduction. One verbal cues required for one of HEP exercises all others performed correctly. Patient reports feeling good end of session. Physical Therapy Plan Frequency and Duration Frequency of 2x/Week Treatment Plan of Care Start 06/17/25 Date Plan of Care End 09/15/25 Date Next Visit Focus/Plan Next Note Type Treatment Note Next Visit Plan Shoulder ROM, strengthening, STM, joint mobilization
--- NOTE | 2025-07-22 18:00 | PT.OPPN ---
Current Diagnoses Other chronic pain (07/22/25) Pain in right arm (07/22/25) Physical Therapy Progress Note PT OP: Cervical/Upper Extremity Start: 06/17/25 16:11 Freq: Status: Active Protocol: Document 07/22/25 18:00 DCW (Rec: 07/23/25 10:44 DCW [id number]) Out-Patient Physical Therapy Visit Information Visit Information Visit Type Progress Note Physical Therapy Assessment Impairments Impairments Activity Tolerance,Functional Activities,Functional Mobility,Pain,ROM,Soft Tissue Mobility,Strength Goals Two Impairment Limitations in R shoulder ROM, flexion 118?, abduction 109? Echocardiography Tech Goal (LTG) Pt to improve right flexion and abduction to >135? in order to improve performance in overhead tasks 07/22/2025 Goal met for flexion, but not abduction ( moves into scaption pattern ) LTG Duration 09/15/25 One Impairment Pt does not have an appropriate home exercise program Echocardiography Tech Goal (LTG) Pt to demonstrate ability to perform four home exercises without cueing in order to demonstrate independence with HEP 07/22/2025 Patient required VC for shoulder IR initiates horizonal add. LTG Duration 09/15/25 Assessment Summary Assessment Pt making progress since initial evaluation. Pt did recently have an MRI, which shows partial tears of his supraspinatus and infraspinatus tendons. Pt reports he is working on getting an appointment with ortho. Will likely continue to benefit from skilled therapy focusing on strength, ROM, and functional mobility. Has been compliant with HEP. Physical Therapy Plan Frequency and Duration Frequency of 2x/Week Treatment Plan of Care Start 06/17/25 Date Plan of Care End 09/15/25 Date Therapeutic Interventions Therapeutic Home Exercise Program,Joint Mobilizations,Manual Interventions Therapy,Neuromuscular Re-education,Patient/Caregiver Education,Self-Care/Home Management,Soft Tissue Mobilization,Therapeutic Activities,Therapeutic Exercises Modalities Cold Pack/Ice Massage,Electric Stimulation,Hot Packs, Ultrasound Next Visit Focus/Plan Next Note Type Treatment Note Next Visit Plan Shoulder ROM, strengthening, STM, joint mobilization
--- NOTE | 2025-07-30 17:49 | PT.OTN ---
Current Diagnoses Other chronic pain (07/30/25) Pain in right arm (07/30/25) Physical Therapy Treatment Note PT OP: Cervical/Upper Extremity Start: 06/17/25 16:11 Freq: Status: Active Protocol: Document 07/30/25 17:00 DCW (Rec: 07/30/25 17:49 DCW [id number]) Out-Patient Physical Therapy Visit Information Visit Information Visit Type Treatment Note Visit Start Time 17:00 Visit Stop Time 17:45 Visit Number 6 Number of SHIPPING INSPECTOR Visits 0 Progress Note Due 08/21/25 Evaluation Information Evaluation Date 06/17/25 OP-PT Subjective Patient Comments Patient Comments Pt has discussed MRI with ortho, suggestion was to continue with PT as planned for another 3-4 weeks, and then he will meet with the surgeon to discuss. Pt admits that his shoulder just doesn't seem to be feeling any better. Therapeutic Exercises Sitting Exercises ER/IR Sitting Exercise ER/IR in 90/90 Name Side right Resistance Red - 3.3# ball Overhead Press Sitting Exercise Overhead Press /c wand Name Side bilateral Resistance 5# Standing Exercises Adduction Standing Exercise Shoulder Adduction Name Side bilateral Resistance Blue PNF Standing Exercise D1/D2 UE PNF Name Side right Resistance 3# Abduction Standing Exercise Shoulder Abduction Name Side bilateral Resistance Lv 3 Reps/Minutes x15 Comments Monitored for pain Extension Standing Exercise Shoulder Extension Name Side bilateral Resistance Blue Flexion Standing Exercise Shoulder Flexion Name Side bilateral Resistance Lv 3 Reps/Minutes x15 Comments Monitored for pain ER/IR Standing Exercise Shoulder ER Name Side bilateral Resistance Lv 3 Reps/Minutes x15 Other Exercises Wall Push-ups Other Exercise Name Wall Push-ups Reps/Minutes x10 each Comments <> and W hand positions Manual Therapy Treatment Consent Patient gave verbal Yes consent for manual treatment Soft Tissue Mobilization Shoulder Body Location UT/levator scap post cuff lat, pec alec scap muscles Mobilization Type Cross-Friction,Rolling,Sustained Pressure Intensity/Depth Moderate Body Position Sitting Joint Mobilizations R scap Joint Thoracoscapular Direction Lateral Grade III Body Position Sitting GH Joint R GH Direction Inferior, post Grade III Body Position Sitting Physical Therapy Assessment Impairments Impairments Activity Tolerance,Functional Activities,Functional Mobility,Pain,ROM,Soft Tissue Mobility,Strength Goals Two Impairment Limitations in R shoulder ROM, flexion 118?, abduction 109? Refuse Collector Goal (LTG) Pt to improve right flexion and abduction to >135? in order to improve performance in overhead tasks 07/22/2025 Goal met for flexion, but not abduction ( moves into scaption pattern ) LTG Duration 09/15/25 One Impairment Pt does not have an appropriate home exercise program Refuse Collector Goal (LTG) Pt to demonstrate ability to perform four home exercises without cueing in order to demonstrate independence with HEP 07/22/2025 Patient required VC for shoulder IR initiates horizonal add. LTG Duration 09/15/25 Assessment Summary Assessment Pt making slow but consistent progress, feels like there has been improvements with overall pain levels, feels more stability in his shoulder, but admits he still feels fairly protective with his movement. Physical Therapy Plan Frequency and Duration Frequency of 2x/Week Treatment Plan of Care Start 06/17/25 Date Plan of Care End 09/15/25 Date Therapeutic Interventions Therapeutic Home Exercise Program,Joint Mobilizations,Manual Interventions Therapy,Neuromuscular Re-education,Patient/Caregiver Education,Self-Care/Home Management,Soft Tissue Mobilization,Therapeutic Activities,Therapeutic Exercises Modalities Cold Pack/Ice Massage,Electric Stimulation,Hot Packs, Ultrasound Next Visit Focus/Plan Next Note Type Treatment Note Next Visit Plan Shoulder ROM, strengthening, STM, joint mobilization
--- NOTE | 2025-08-06 17:55 | PT.OTN ---
Current Diagnoses Other chronic pain (08/06/25) Pain in right arm (08/06/25) Physical Therapy Treatment Note PT OP: Cervical/Upper Extremity Start: 06/17/25 16:11 Freq: Status: Active Protocol: Document 08/06/25 17:03 AB (Rec: 08/06/25 17:54 AB [id number]) Out-Patient Physical Therapy Visit Information Visit Information Visit Type Treatment Note Visit Start Time 17:06 Visit Stop Time 17:48 Visit Number 7 Number of POWER CHECKER Visits 1 OP-PT Subjective Patient Comments Patient Comments Patient reports he is the same, shoulder bothers in the morning, it is usually ok, hurts less frequently, but when it hurts it hurts. AROM 142 deg R shoulder flexion start of session. Therapeutic Exercises Supine Exercises incline flexion Reps/Minutes X 8 Comments verbal cues Sidelying Exercises Open book Reps/Minutes X 10 each side sidelying shoulder ER Reps/Minutes X 8 w/o weight X 15 with 1 lb Comments verbal cues sidelying shoulder abnd Sidelying Exercise HEP sidelying sh abduction Name Side right Reps/Minutes X 10 Comments verbal cues Sitting Exercises ER/IR Sitting Exercise ER/IR in ~75 deg abd Name Side right Resistance 2 lb ER level one band IR Equipment Used HEP Reps/Minutes X 15 each Comments vc to perform ecc slowly Standing Exercises Row Standing Exercise 1.Rows 2. High row with level 3 X 4 not amadeo Name Side bilateral Resistance Blue level 4 Reps/Minutes X 15 X 2 HEP Comments verbal and visual cues Manual Therapy Treatment Consent Patient gave verbal Yes consent for manual treatment Soft Tissue Mobilization Shoulder Body Location UT/levator scap post cuff lat, pec alec scap muscles Mobilization Type Cross-Friction,Rolling,Sustained Pressure Intensity/Depth Moderate Body Position Sitting Joint Mobilizations R scap Joint into dep and add Direction iv Body Position Sidelying Reps/Duration X 10 each GH Joint R GH Direction Inferior, post Grade III Body Position Hooklying Reps/Duration X10 X 3 each Physical Therapy Assessment Goals Two Impairment Limitations in R shoulder ROM, flexion 118?, abduction 109? Fertilizing Machine Operator Goal (LTG) Pt to improve right flexion and abduction to >135? in order to improve performance in overhead tasks 07/22/2025 Goal met for flexion, but not abduction ( moves into scaption pattern ) LTG Duration 09/15/25 One Impairment Pt does not have an appropriate home exercise program Fertilizing Machine Operator Goal (LTG) Pt to demonstrate ability to perform four home exercises without cueing in order to demonstrate independence with HEP 07/22/2025 Patient required VC for shoulder IR initiates horizonal add. LTG Duration 09/15/25 Assessment Summary Assessment 148 deg AROM R shoulder flexion end of session. Dec amadeo to trial of high row. Physical Therapy Plan Frequency and Duration Frequency of 2x/Week Treatment Plan of Care Start 06/17/25 Date Plan of Care End 09/15/25 Date Next Visit Focus/Plan Next Note Type Treatment Note Next Visit Plan Shoulder ROM, strengthening, STM, joint mobilization
--- NOTE | 2025-08-06 17:57 | PT.OTN ---
Current Diagnoses Other chronic pain (08/06/25) Pain in right arm (08/06/25) Physical Therapy Treatment Note PT OP: Cervical/Upper Extremity Start: 06/17/25 16:11 Freq: Status: Active Protocol: Document 08/06/25 17:03 AB (Rec: 08/06/25 17:54 AB [id number]) Out-Patient Physical Therapy Visit Information Visit Information Visit Type Treatment Note Visit Start Time 17:06 Visit Stop Time 17:48 Visit Number 7 Number of FOREST FIRE OFFICER Visits 1 OP-PT Subjective Patient Comments Patient Comments Patient reports he is the same, shoulder bothers in the morning, it is usually ok, hurts less frequently, but when it hurts it hurts. AROM 142 deg R shoulder flexion start of session. Therapeutic Exercises Supine Exercises incline flexion Reps/Minutes X 8 Comments verbal cues Sidelying Exercises Open book Reps/Minutes X 10 each side sidelying shoulder ER Reps/Minutes X 8 w/o weight X 15 with 1 lb Comments verbal cues sidelying shoulder abnd Sidelying Exercise HEP sidelying sh abduction Name Side right Reps/Minutes X 10 Comments verbal cues Sitting Exercises ER/IR Sitting Exercise ER/IR in ~75 deg abd Name Side right Resistance 2 lb ER level one band IR Equipment Used HEP Reps/Minutes X 15 each Comments vc to perform ecc slowly Standing Exercises Row Standing Exercise 1.Rows 2. High row with level 3 X 4 not amadeo Name Side bilateral Resistance Blue level 4 Reps/Minutes X 15 X 2 HEP Comments verbal and visual cues Manual Therapy Treatment Consent Patient gave verbal Yes consent for manual treatment Soft Tissue Mobilization Shoulder Body Location UT/levator scap post cuff lat, pec alec scap muscles Mobilization Type Cross-Friction,Rolling,Sustained Pressure Intensity/Depth Moderate Body Position Sitting Joint Mobilizations R scap Joint into dep and add Direction iv Body Position Sidelying Reps/Duration X 10 each GH Joint R GH Direction Inferior, post Grade III Body Position Hooklying Reps/Duration X10 X 3 each Physical Therapy Assessment Goals Two Impairment Limitations in R shoulder ROM, flexion 118?, abduction 109? Manager Long Term Care Goal (LTG) Pt to improve right flexion and abduction to >135? in order to improve performance in overhead tasks 07/22/2025 Goal met for flexion, but not abduction ( moves into scaption pattern ) LTG Duration 09/15/25 One Impairment Pt does not have an appropriate home exercise program Manager Long Term Care Goal (LTG) Pt to demonstrate ability to perform four home exercises without cueing in order to demonstrate independence with HEP 07/22/2025 Patient required VC for shoulder IR initiates horizonal add. LTG Duration 09/15/25 Assessment Summary Assessment 148 deg AROM R shoulder flexion end of session. Dec amadeo to trial of high row. Physical Therapy Plan Frequency and Duration Frequency of 2x/Week Treatment Plan of Care Start 06/17/25 Date Plan of Care End 09/15/25 Date Next Visit Focus/Plan Next Note Type Treatment Note Next Visit Plan Shoulder ROM, strengthening, STM, joint mobilization
--- NOTE | 2025-08-10 17:52 | PT.OPPN ---
Current Diagnoses Other chronic pain (08/10/25) Pain in right arm (08/10/25) Physical Therapy Progress Note PT OP: Cervical/Upper Extremity Start: 06/17/25 16:11 Freq: Status: Active Protocol: Document 08/10/25 17:00 DCW (Rec: 08/10/25 17:52 DCW [id number]) Out-Patient Physical Therapy Visit Information Visit Information Visit Type Progress Note Visit Start Time 17:00 Visit Stop Time 17:45 Visit Number 8 Number of FUSE MAKER Visits 0 Progress Note Due 09/09/25 Evaluation Information Evaluation Date 06/17/25 OP-PT Subjective Patient Comments Patient Comments Okay, I think it might actually be getting better. Notes he has not been waking up with pain, is not noticing any pain throughout the day most of the time, no pain with home exercises, but there is just still something there. Shoulder Goniometric Range of Motion Shoulder Measured in Degrees Right Active Shoulder ROM WFL No Testing Position Standing Flexion 149 Abduction 163 External Rotation at 75 0 degrees Abduction Internal Rotation T8 Behind Back (text) Left Active Shoulder ROM WFL Yes Testing Position Standing Flexion 180 Abduction 180 External Rotation at 75 0 degrees Abduction Internal Rotation T4 Behind Back (text) Special Tests Shoulder Special Tests Passive ER Rotator Cuff Test Results Negative Lift-Off Rotator Cuff Test Results Positive R Meng José Miguel Impingement Test Results Positive R Empty Can Test Results Negative Belly Press Test Results Negative Therapeutic Exercises Standing Exercises IR stretch Standing Exercise Towel stretch Name Comments Stopped d/t discomfort Adduction Standing Exercise Shoulder Adduction Name Side bilateral Resistance Blue Abduction Standing Exercise Shoulder Abduction Name Side bilateral Resistance 4# Reps/Minutes x15 Comments Monitored for pain Extension Standing Exercise Shoulder Extension Name Side bilateral Resistance Blue Flexion Standing Exercise Shoulder Flexion Name Side bilateral Resistance 4# Reps/Minutes x15 Comments Monitored for pain ER/IR Standing Exercise Shoulder ER Name Side bilateral Resistance Lv 3 Reps/Minutes x15 Manual Therapy Treatment Consent Patient gave verbal Yes consent for manual treatment Soft Tissue Mobilization Shoulder Body Location UT/levator scap post cuff lat, pec alec scap muscles Mobilization Type Cross-Friction,Rolling,Sustained Pressure Intensity/Depth Moderate Body Position Supine Joint Mobilizations R scap Joint Thoracoscapular Direction Lateral Grade III Body Position Supine GH Joint R GH Direction Inferior, post Grade III Body Position Supine Physical Therapy Assessment Impairments Impairments Activity Tolerance,Functional Activities,Functional Mobility,Pain,ROM,Soft Tissue Mobility,Strength Goals Two Impairment Limitations in R shoulder ROM, flexion 118?, abduction 109? Tailor Women'S Garment Alteration Goal (LTG) Pt to improve right flexion and abduction to >135? in order to improve performance in overhead tasks LTG Duration Met One Impairment Pt does not have an appropriate home exercise program Tailor Women'S Garment Alteration Goal (LTG) Pt to demonstrate ability to perform four home exercises without cueing in order to demonstrate independence with HEP 07/22/2025 Patient required VC for shoulder IR initiates horizonal add. LTG Duration 09/15/25 Assessment Summary Assessment Pt making great progress recently, significant improvements with ROM, and pt noting significant decrease in pain frequency and severity. Pt still showing some signs of dysfunction, notably with Meng -José Miguel impingement testing and lift-off tests. Pt should continue to benefit from skilled therapeutic intervention focusing on strength, mobility, and stability of his right shoulder. Physical Therapy Plan Frequency and Duration Frequency of 2x/Week Treatment Plan of Care Start 06/17/25 Date Plan of Care End 09/15/25 Date Therapeutic Interventions Therapeutic Home Exercise Program,Joint Mobilizations,Manual Interventions Therapy,Neuromuscular Re-education,Patient/Caregiver Education,Self-Care/Home Management,Soft Tissue Mobilization,Therapeutic Activities,Therapeutic Exercises Modalities Cold Pack/Ice Massage,Electric Stimulation,Hot Packs, Ultrasound Next Visit Focus/Plan Next Note Type Treatment Note Next Visit Plan Shoulder ROM, strengthening, STM, joint mobilization
--- NOTE | 2025-08-31 17:15 | PT.OPDS ---
Current Diagnoses Other chronic pain (08/31/25) Pain in right arm (08/31/25) Visit Care Team Role Provider Type Chavez Ni DO Attending Provider Physician Primary Care Provider Referring Provider Specialty: Family Practice Address: [address] [place] [address], [facility] Email: Visit Number Visit Number 9 Discharge Summary PT OP: Cervical/Upper Extremity Start: 06/17/25 16:11 Freq: Status: Active Protocol: Document 08/31/25 17:00 DCW (Rec: 08/31/25 17:14 DCW [id number]) Out-Patient Physical Therapy Visit Information Visit Information Visit Type Discharge Summary Visit Start Time 17:00 Visit Stop Time 17:15 Visit Number 9 Number of PROFESSIONAL HOUSING CONSULTANT Visits 0 Progress Note Due 09/09/25 Evaluation Information Evaluation Date 06/17/25 OP-PT Subjective Patient Comments Patient Comments Pt reports that he had four vaccinations yesterday, two in each arm, so his shoulders are a little sore today due to that, but otherwise, my shoulder is great. Shoulder Goniometric Range of Motion Shoulder Right Active Shoulder ROM WFL No Testing Position Standing Flexion 158 Abduction 165 External Rotation at 75 0 degrees Abduction Internal Rotation T8 Behind Back (text) Manual Therapy Treatment Soft Tissue Mobilization Shoulder Body Location UT/levator scap post cuff lat, pec alec scap muscles Mobilization Type Cross-Friction,Rolling,Sustained Pressure Intensity/Depth Moderate Body Position Supine Physical Therapy Assessment Impairments Impairments Activity Tolerance,Functional Activities,Functional Mobility,Pain,ROM,Soft Tissue Mobility,Strength Goals Two Impairment Limitations in R shoulder ROM, flexion 118?, abduction 109? Software Tester Goal (LTG) Pt to improve right flexion and abduction to >135? in order to improve performance in overhead tasks LTG Duration Met One Impairment Pt does not have an appropriate home exercise program Software Tester Goal (LTG) Pt to demonstrate ability to perform four home exercises without cueing in order to demonstrate independence with HEP LTG Duration Met Assessment Summary Assessment Pt reporting minimal pain, feeling much better overall, has no further complaints or concerns. Feels comfortable with ongoing HEP, agreeable to discharge from skilled therapy at this time. Physical Therapy Plan Frequency and Duration Frequency of 2x/Week Treatment Plan of Care Start 06/17/25 Date Plan of Care End 09/15/25 Date Therapeutic Interventions Therapeutic Home Exercise Program,Joint Mobilizations,Manual Interventions Therapy,Neuromuscular Re-education,Patient/Caregiver Education,Self-Care/Home Management,Soft Tissue Mobilization,Therapeutic Activities,Therapeutic Exercises Modalities Cold Pack/Ice Massage,Electric Stimulation,Hot Packs, Ultrasound Discharge Physical Therapy Discharge Reasons Goals Met Next Visit Focus/Plan Next Note Type Discharge Summary
== END 2025-09-01 10:00 | disposition home or self-care (01) ==
LOC: PHYS 17:00
PROVIDERS: PCP Family Medicine; Referring Provider Family Medicine; Visit Provider Family Medicine
DX: M79.601 Pain in right arm (principal); G89.29 Other chronic pain
CPT/HCPCS: 97110; 97140; 97161; 97530